=== PATIENT | female | born 1965 | race Caucasian/White ===

== ENCOUNTER 2019-05-13 13:48 | Emergency (ER) | payer OTHER ==
[~2019-05-13] VITALS: Ht 157.5 cm; Wt 95.3 kg
--- NOTE | ~2019-05-13 | EKG ---
[place] [address] ELECTROCARDIOGRAM REPORT Name: KEVIN REDDING Room: [facility]#: [id number] Admission: 05/13/19 Attend Phys: Discharge: Date of : 65 Date of Service: 05/13/19 1421 Report #: [id number] THIS REPORT FOR: cc: MICHAEL - No family physician/PCP FAM - No family physician/PCP Maile Gr MD ~ THIS REPORT FOR: //name// [facility] ED Test Date: 2019-05-13 Test Time: 14:21:35 Pat Name: KEVIN REDDING Department: Room: Gender: F Molder [employer]: [facility] : 1965 Requested By: Ramiro Wilburn Order Number: [id number] MD: Measurements Intervals [place] Rate: 78 P: 26 SC: 168 QRS: 1 QRSD: 91 T: 5 QT: 378 QTc: 431 Interpretive Statements Sinus rhythm Probable left atrial enlargement Low voltage, precordial leads Baseline wander in lead(s) V1 No previous ECG available for comparison [email or web address] By: [address] [place], [place] /EPI
[2019-05-13] MEDS ORDERED: ASA81BEC PO (14:30)
[2019-05-13] MEDS ORDERED: CARVEDILOL12.5 MG PO (14:31)
[2019-05-13] MEDS ORDERED: TRIBENZOR 40-11 EAC1 PO (14:32)
[2019-05-13 15:11] LABS: ABSOLUTE EOSINOPHILS 0.1 thou/uL (0.0-0.7); ABSOLUTE LYMPHOCYTES 1.8 thou/uL (0.8-5.3); ABSOLUTE MONOCYTES 0.4 thou/uL (0.0-1.2); ABSOLUTE NEUTROPHILS 4.1 thou/uL (1.6-8.1); BASOPHILS 0.3 %; EOSINOPHILS 1.3 %; HEMATOCRIT 38.8 % (37.0-47.0); HEMOGLOBIN 13.6 gm/dL (12.0-15.0); LYMPHOCYTES 28.5 %; MCH 30.8 pg (26.0-34.0); MCV 87.9 fL (80.0-100.0); MONOCYTES 5.8 %; MPV 8.4 fl. (7.2-11.1); NUCLEATED RBCS 0 /100WBC; PLATELET COUNT* 290 thou/uL (150-400); POLYS 64.1 %; RBC 4.42 mil/uL (4.20-5.00); RDW-CV 13.4 % (10.5-14.5); WBC 6.3 thou/uL (4.0-11.0)
[2019-05-13 15:23] LABS: APTT 23.5 Seconds (25.0-31.3); PROTIME 10.1 Seconds (9.20-11.50)
[2019-05-13 15:26] LABS: CALCIUM 9.5 mg/dL (8.5-10.1); CREATININE 0.7 mg/dL (0.6-1.3); POTASSIUM 3.2 mmol/L (3.5-5.1)
[2019-05-13 15:41] LABS: ALBUMIN 4.2 g/dL (3.4-5.0); CK-MB MASS 0.6 ng/mL (<0.5-3.6); TOTAL BILIRUBIN 0.4 mg/dL (<0.1-1.0); TOTAL PROTEIN 8.2 g/dL (6.4-8.2)
[2019-05-13 16:09] LABS: URINE BILIRUBIN NEGATIVE (Negative); URINE BLOOD NEGATIVE (Negative); URINE CLARITY CLEAR; URINE COLOR YELLOW; URINE GLUCOSE-RANDOM NEGATIVE (Negative); URINE KETONES 2+ (Negative); URINE LEUKOCYTES-REFLEX NEGATIVE (Negative); URINE NITRITE-REFLEX NEGATIVE (Negative); URINE PROTEIN NEGATIVE (Negative); URINE UROBILINOGEN 0.2 E.U./dl (0.2-1.0)
[2019-05-13 16:23] VITALS: BP 147/82
== END 2019-05-13 16:25 | disposition home or self-care (01) ==
LOC: M.ERS 13:48
PROVIDERS: Family Medicine
DX: R53.1 Weakness (principal); I10 Essential (primary) hypertension